=== PATIENT | male | born 1950 | race Caucasian/White ===

== ENCOUNTER 2023-12-18 13:49 | Emergency (ER) | payer MEDICARE, OTHER ==
[~2023-12-18 13:49] MED LIST: Iopamidol-370 76% 500 ML MDV (1 ML CHARGE) ONE
[2023-12-18] MEDS ORDERED: CEFAZOLIN 2 GM VIAL ONE (14:05)
[2023-12-18] MEDS ORDERED: Boostrix 0.5 ML (Tdap) VIAL (>/=7 yrs of age) ONE (14:05)
[2023-12-18] MEDS ORDERED: Sodium Chloride 0.9% 100 ML ONE (14:05)
== END 2023-12-18 14:52 | disposition home or self-care (01) ==
LOC: ERS 13:49
DX: S50.812A Abrasion of left forearm, initial encounter (principal); S50.811A Abrasion of right forearm, initial encounter; R10.9 Unspecified abdominal pain; I10 Essential (primary) hypertension; Z23 Encounter for immunization; V28.49XA Other motorcycle driver injured in noncollision transport accident in traffic accident, initial encounter
CPT/HCPCS: 71260; 74177; 90471; 90715; 96365; G0390; Q9967